=== PATIENT | male | born 1985 | race African-American/Black ===

== ENCOUNTER 2021-12-29 08:49 | Emergency (ER) | payer OTHER ==
[2021-12-29 09:03] VITALS: BP 143/75; PULSE 65; RESP 18; TEMP 97.8; BMI 26.3
[2021-12-29] MEDS ORDERED: KETOROLAC TROMETHAMINE 30 MG/1 ML VIAL IM ONE (09:17)
[2021-12-29] MEDS ORDERED: KETOROLAC TROMETHAMINE 30 MG/1 ML VIAL ONE (09:22)
== END 2021-12-29 12:51 | disposition home or self-care (01) ==
LOC: JER 08:49 → JERFT 08:49
PROC: 3E0233Z Introduction of Anti-inflammatory into Muscle, Percutaneous Approach (ICD-10-PCS; principal; 2021-12-29)
DX: S86.911A Strain of unspecified muscle(s) and tendon(s) at lower leg level, right leg, initial encounter (principal)
CPT/HCPCS: 76882-TC-RT-FY; 99284-25